=== PATIENT | female | born 1985 | race African-American/Black ===

== ENCOUNTER 2022-11-04 08:57 | Emergency (ER) | payer SELFPAY ==
[~2022-11-04] VITALS: Ht 157.5 cm; Wt 55.0 kg
[2022-11-04 09:12] VITALS: TEMP 98.6; O2SAT 100
[2022-11-04] MEDS ORDERED: NAPR-681 PO (11:14)
[2022-11-04] MEDS ORDERED: NAPROXEN 250MG TABLET PO STA (11:21)
[2022-11-04] MEDS ORDERED: IBUPROFEN 600MG TABLET PO STA (11:22)
[2022-11-04] MEDS ORDERED: NAPROXEN 500MG TABLET PO NR (11:30)
[2022-11-04 11:48] VITALS: BP 138/94; PULSE 81; RESP 18
[2022-11-04] MEDS ORDERED: KETOROLAC 60MG/2ML VIAL IM STA (11:48)
== END 2022-11-04 12:35 | disposition home or self-care (01) ==
LOC: ER 08:57
DX: M25.511 Pain in right shoulder (principal)
CPT/HCPCS: 99283; 81025; 73030; 96372; J1885